=== PATIENT | female | born 1975 | race Asian ===

== ENCOUNTER 2018-06-07 07:03 | Emergency (ER) | payer OTHER ==
[~2018-06-07] VITALS: Ht 165.1 cm; Wt 74.8 kg
[2018-06-07 07:12] VITALS: TEMP 99
[2018-06-07 08:22] LABS: PLATELET COUNT 191 K/uL (152-353)
[2018-06-07 08:32] LABS: POTASSIUM 3.8 mmol/L (3.6-5.2); SODIUM 142 mmol/L (136-145)
[2018-06-07] MEDS ORDERED: FURO20TA67 PO (10:14)
[2018-06-07] MEDS ORDERED: PROVENTIL INH (10:15)
[2018-06-07] MEDS ORDERED: SPIRONOLACT25 MG PO (10:16)
[2018-06-07] MEDS ORDERED: PRINIVIL5 MG PO (10:16)
[2018-06-07] MEDS ORDERED: CARV6.25 PO (10:16)
[2018-06-07] MEDS ORDERED: ASA LOW DOSE81 MG PO (10:17)
[2018-06-07] MEDS ORDERED: SIMV40TA57 PO (10:17)
[2018-06-07] MEDS ORDERED: FLUTMIS6 INH (10:18)
[2018-06-07 10:32] VITALS: BP 125/89
== END 2018-06-07 10:32 | disposition home or self-care (01) ==
LOC: ED 07:03
PROVIDERS: Emergency Medicine
DX: I50.9 Heart failure, unspecified (principal); J40 Bronchitis, not specified as acute or chronic
CPT/HCPCS: 36415; 80053; 82550; 82553; 83880; 84484; 85027; 87502; 93005; 94664; 96374; 99284; J1940